=== PATIENT | male | born 1975 | race Caucasian/White ===

== ENCOUNTER 2016-08-19 22:19 | Observation (INO) | payer SELFPAY ==
[~2016-08-19] VITALS: Ht 190.5 cm; Wt 124.1 kg
[2016-08-20] VITALS (8 sets, daily range): BP systolic 109–133; BP diastolic 43–77
--- NOTE | 2016-08-20 01:13 | ED ORDER SUMMARY ---
..... Patient: MICHAEL CALIXTO OrderSheet [facility] VisitID: [id number] [address] [place] [address] 41y, M Registration Date/Time: 08/19/2016 ORDER SHEET Weight: 113.3 kg (stated) Allergies: No Known Drug Allergy GENERAL ORDERS: CBC w Diff Urgent (23:35 08/19/2016 Tyrone Jennings) (Ack 23:35 LMuller) (23:38 RKaruga) (23:39 LMuller) CMP Urgent (23:35 08/19/2016 Tyrone Jennings) (Ack 23:35 LMuller) (23:38 RKaruga) (23:39 LMuller) Lipase Urgent (23:35 08/19/2016 Tyrone Jennings) (Ack 23:35 LMuller) (23:38 RKaruga) (23:39 LMuller) UA-Culture if indicated Urgent (23:35 08/19/2016 Tyrone Jennings) (Ack 23:35 LMuller) (1:46 RCollier R.N.) CT Abd/Pel w Cont (No) (N/A) Urgent (00:06 08/20/2016 Tyrone Jennings) (0:17 CBradburn R.N.) NPO (01:33 08/20/2016 Tyrone Jennings) (1:46 RCollier R.N.) MEDICATION ORDERS: IV FLUIDS: IV NS : initial bolus 1000 mL (1000 mL/hr), then none - for X1 (NOW) (23:34 08/19/2016 Tyrone Jennings) (Ack 23:35 RCollier R.N.) (23:41 RCollier R.N.) Zofran IV 4 mg (NOW) (23:35 08/19/2016 Tyrone Jennings) (Ack 23:35 CLIFTONollier R.N.) (23:42 RCollier R.N.) Morphine IV 4 mg (HIGH ALERT MEDICATION, NOW) (00:05 08/20/2016 Tyrone Jennings) (Ack 0:06 CLIFTONollier R.N.) (Cancelled: Patient Refusal0:12 Tyrone Jennings) Toradol IV 30 mg (NOW) (00:12 08/20/2016 Tyrone Jennings) (Ack 0:29 RCollier R.N.) (0:32 RCollier R.N.) Cefotetan IV 2 gm (NOW) (01:14 08/20/2016 Tyrone Jennings) (Ack 1:14 RCollier R.N.) (1:23 RCollier R.N.) ORDER SHEET NOTES: [Electronically signed by Libby Moctezuma R.N. (02:17 08/20/2016)] [Electronically signed by Fahad Huber Dr. (02:37 08/20/2016)] [Electronically locked/signed by Libby Moctezuma R.N. (02:08/20/2016)]
--- NOTE | 2016-08-20 01:13 | ED CLINICAL REPORT ---
Clinical Report - Physicians/Mid Levels [facility] [address] [place] [address] 08/19/2016 22:21 Patient: MICHAEL CALIXTO Time Seen: 0000. Arrived- By private vehicle. Historian- patient. HISTORY OF PRESENT ILLNESS Chief Complaint: ABDOMINAL PAIN. It is described as sharp and it is described as located in the periumbilical area and in the lower abdomen. At its maximum, severity described as moderate. When seen in the E.D., severity described as moderate. This started today just after lunch and is still present. It was abrupt in onset and has been constant but is not gone now. The patient has had nausea, vomiting and diarrhea. Similar symptoms previously: None. REVIEW OF SYSTEMS No constipation, black stools, bloody stools, chest pain or difficulty breathing. All systems otherwise negative, except as recorded above. PAST HISTORY See nurses notes. Additional Surgeries: no known surgeries. Medications: None. Allergies: No Known Drug Allergy. SOCIAL HISTORY Never smoker. No alcohol use or drug use. No recent travel. Is a local resident. FAMILY HISTORY No family history of gall bladder problems. ADDITIONAL NOTES The nursing notes have been reviewed. PHYSICAL EXAM Vital Signs: 08/19/2016 23:17 BP: 137/87. HR: 63. RR: 17. O2 saturation: 100%. Temp: 98.4 F. Rowell-Yoo pain scale: 4/10. Oxygen saturation normal. Appearance: Alert. Oriented X3. Patient in mild distress. (nontoxic appearance. Polite. Cooperative.). Eyes: Pupils equal, round and reactive to light. Eyes normal inspection. No scleral icterus. Neck: Normal inspection. Neck supple. CVS: Normal heart rate and rhythm. Heart sounds normal. Pulses normal. Respiratory: No respiratory distress. Breath sounds normal. Chest nontender. No rales, rhonchi or wheezes. Abdomen: Soft. Moderate tenderness in the periumbilical area and right lower quadrant. No organomegaly. No mass. Skin: Skin warm and dry. Normal skin color. No rash. Normal skin turgor. Extremities: Extremities exhibit normal ROM. No lower extremity edema. Neuro: No motor deficit. No sensory deficit. LABS, X-RAYS, AND EKG Abdominal CT: acute appendicitis. The study was independently viewed by me and interpreted by the radiologist. The study was discussed with the radiologist (via fax and phone). Laboratory Tests: CBC w Diff: (CRISTINA: 08/19/2016 23:30) ( MsgRcvd 08/19/2016 23:50) Final results Test Result Flag Units (Reference) WHITE BLOOD COUNT 13.7 H K/uL (4.5-11.5) RED BLOOD COUNT 5.61 M/uL (4.50-5.90) HEMOGLOBIN 16.0 gm/dL (13.5-17.5) HEMATOCRIT 48.2 % (41.0-53.0) MEAN CELL VOLUME 86 fL (80-100) MEAN CORPUSCULAR HGB 29 pg (26-34) MEAN CORPUSCULAR HGB CONC 33 g/dL (31-37) RED CELL DISTRIBUTION WIDTH 12.2 % (11.6-14.8) PLATELET COUNT 241 K/uL (150-400) LYMPH % 7.4 L % (25-40) MONO % 2.0 L % (3-14) GRANULOCYTE % 90.6 H % (53-90) CMP: (CRISTINA: 08/19/2016 23:30) ( MsgRcvd 08/20/2016 00:00) Final results Test Result Flag Units (Reference) GLUCOSE 132 H mg/dL (70-110) BUN 18 mg/dL (7-18) CREATININE 1.2 mg/dL (0.6-1.3) Estimated GFR >60 mL/min Estimated GFR- >60 mL/min Note: Persistent reduction over 3 months in eGFR<60 mL/min/1.73 m2 defines CKD. Patients with eGFR values>=60 mL/min/1.73 m2 may also have CKD if evidence ofpersistent proteinuria. Additional information may be foundat www.kidney.org. SODIUM 141 mmol/L (136-145) POTASSIUM 4.0 mmol/L (3.5-5.1) CHLORIDE 106 mmol/L (98-107) CARBON DIOXIDE 25 mmol/L (21-32) CALCIUM 8.9 mg/dL (8.5-10.1) TOTAL PROTEIN 7.5 g/dL (6.4-8.2) ALBUMIN 4.1 g/dL (3.3-5.0) BILIRUBIN, TOTAL 0.8 mg/dL (0.0-1.0) ALKALINE PHOSPHATASE 62 U/L (46-116) AST (SGOT) 19 U/L (15-37) ALT (SGPT) 38 U/L (12-78) LIPASE 93 U/L (73-393) . PROGRESS AND PROCEDURES Course of Care: the patient is a 41-year-old male with no pertinent past medical history presenting for evaluation of abdominal pain. Patient with atypical symptoms of acute appendicitis however patient with tenderness to the periumbilical region as well as right lower quadrant. Patient does appear to be uncomfortable. Concern for hisacute appendicitis significant enough to warrant CT scan of the abdomen and pelvis with contrast. Pain medication has been offered. Patient had declined offers of morphine. Patient requesting nonnarcotic tip of medication. Toradol has been ordered. The patient's workup was remarkable for the findings above. Patient with with blood cell count at 13.7. Patient with CT scan evidence of acute appendicitis. No signs of perforation or abscess formation. Consult to general surgery as been placed. Antibiotics have been ordered. General surgery recommended patient be admitted to the hospital. planned for surgery at 645 this morning. Was able to talk to the soda dry house operator as well and informed them of the time of surgery. discussed with the patient his workup here in the emergency department including diagnosis and plan of care. All questions have been answered. The patient was agreeable to the treatment and plan. Prior to patient's departure from the emergency department is noted to be resting in bed and in no acute distress. Pain had improved slightly. Patient continues to be nontoxic. Patient does not appear septic at this time. Do not feel patient needs to be admitted to the ICU. Critical care performed (35 minutes). Time is exclusive of separately billable procedures. Time includes: direct patient care, patient reassessment, coordination of patient care, review of patient's medical records, medical consultation, family consultation regarding treatment decisions and documentation of patient care. Consult obtained from surgery. Disposition: Observation in Acute Care. CLINICAL IMPRESSION acute appendicitis nausea vomiting, acute acute diarrhea. (Electronically signed by Fahad Huber Dr. 08/20/2016 2:37)
--- NOTE | 2016-08-20 01:13 | ED ORDER SUMMARY ---
..... Patient: MICHAEL CALIXTO OrderSheet [facility] VisitID: [id number] [address] [place] [address] 41y, M Registration Date/Time: 08/19/2016 ORDER SHEET Weight: 113.3 kg (stated) Allergies: No Known Drug Allergy GENERAL ORDERS: CBC w Diff Urgent (23:35 08/19/2016 Tyrone Jennings) (Ack 23:35 LMuller) (23:38 RKaruga) (23:39 LMuller) CMP Urgent (23:35 08/19/2016 Tyrone Jennings) (Ack 23:35 LMuller) (23:38 RKaruga) (23:39 LMuller) Lipase Urgent (23:35 08/19/2016 Tyrone Jennings) (Ack 23:35 LMuller) (23:38 RKaruga) (23:39 LMuller) UA-Culture if indicated Urgent (23:35 08/19/2016 Tyrone Jennings) (Ack 23:35 LMuller) (1:46 RCollier R.N.) CT Abd/Pel w Cont (No) (N/A) Urgent (00:06 08/20/2016 Tyrone Jennings) (0:17 CBradburn R.N.) NPO (01:33 08/20/2016 Tyrone Jennings) (1:46 RCollier R.N.) MEDICATION ORDERS: IV FLUIDS: IV NS : initial bolus 1000 mL (1000 mL/hr), then none - for X1 (NOW) (23:34 08/19/2016 Tyrone Jennings) (Ack 23:35 RCollier R.N.) (23:41 RCollier R.N.) Zofran IV 4 mg (NOW) (23:35 08/19/2016 Tyrone Jennings) (Ack 23:35 CLIFTONollier R.N.) (23:42 RCollier R.N.) Morphine IV 4 mg (HIGH ALERT MEDICATION, NOW) (00:05 08/20/2016 Tyrone Jennings) (Ack 0:06 CLIFTONollier R.N.) (Cancelled: Patient Refusal0:12 Tyrone Jennings) Toradol IV 30 mg (NOW) (00:12 08/20/2016 Tyrone Jennings) (Ack 0:29 RCollier R.N.) (0:32 RCollier R.N.) Cefotetan IV 2 gm (NOW) (01:14 08/20/2016 Tyrone Jennings) (Ack 1:14 RCollier R.N.) (1:23 RCollier R.N.) ORDER SHEET NOTES: [Electronically signed by Libby Moctezuma R.N. (02:17 08/20/2016)] [Electronically signed by Fahad Huber Dr. (02:37 08/20/2016)] [Electronically locked/signed by Libby Moctezuma R.N. (02:08/20/2016)]
--- NOTE | 2016-08-20 01:13 | ED NURSING NOTES ---
Clinical Report - Nurses [facility] [place] [place] [address] 08/19/2016 22:21 Patient: MICHAEL CALIXTO TRIAGE Triage time 23:17. Acuity: LEVEL 3. Chief Complaint: ABDOMINAL PAIN, NAUSEA, VOMITING and DIARRHEA. --23:20 Libby Moctezuma R.N. 23:17 08/19/16. BP: 137/87. HR: 63. RR: 17 (regular). O2 saturation: 100% on room air. Temp: 98.4 F (oral). Rowell-Yoo pain scale: 4/10. --23:20 Libby Moctezuma R.N. Weight: 113.3 kg stated. Height/Length: 75 inches Per Patient. BMI: 31.2. --23:19 Libby Moctezuma R.N. Medications None. --23:20 Libby Moctezuma R.N. Allergies No Known Drug Allergy. --23:20 Libby Moctezuma R.N. History Arrived by private vehicle. Historian: patient. Accompanied by family. Primary physician (None). ( pt reports eating a ham sandwich, chips and about 2 hours after he ate he began feeling sick.). This started today. Onset. (at about 1600). PAST MEDICAL HX: Immunizations: up-to-date. SOCIAL HX: Never smoker. No alcohol use or drug use. --23:20 Libby Moctezuma R.N. PROBLEMS: Gastritis. Vomiting. --23:20 Libby Moctezuma R.N. ADDITIONAL SURGERIES: no known surgeries. Interventions ID band on patient. To treatment room. --23:20 Libby Moctezuma R.N. PHYSICAL ASSESSMENT To room via wheelchair. Patient gowned. GENERAL / NEURO / PSYCH: Alert. Oriented X 4. Appears in pain. HEENT: Mucous membranes are pink. RESPIRATORY: Respirations not labored. CVS: Capillary refill less than 2 seconds. SKIN: Skin is warm and dry. --23:21 Libby Moctezuma R.N. NURSING PROGRESS NOTES Head of bed elevated. Two patient identifiers checked. Call light placed in reach. Side rails up x 1. Bed placed in lowest position. Brakes of bed on. --23:21 Libby Moctezuma R.N. Patient ready for evaluation- chart flagged. --23:21 Libby Moctezuma R.N. 23:25 08/19/2016 Site #1 started via IV in the right antecubital space with an 20g angiocath, with aseptic technique and good blood return; one attempt. Blood drawn: rainbow set. Labeled in the presence of the patient and sent to the lab. Saline lock flushed with 10 mL saline. --23:29 Libby Moctezuma R.N. 23:37 08/19/2016 Started bag #1 1000 mL IV Fluids IV NS (Saline); at 1000 mL/hr via site #1 via IV pump. Allergies verified and confirmed 5 rights. IV patency established. IV site checked: no pain, redness, or swelling. IV flushed thoroughly pre- and post-medication administration. --23:41 Libby Moctezuma R.N. 23:39 08/19/2016 Zofran (Ondansetron HCl) IVP 4 mg given over 30 second(s) via site #1. Allergies verified and confirmed 5 rights. IV patency established. IV site checked: no pain, redness, or swelling. IV flushed thoroughly pre- and post-medication administration. IVP given by RN. --23:42 Libby Moctezuma R.N. ( pt given urinal and sample requested.). --23:42 Libby Moctezuma R.N. Patient transported to [place] by stretcher with tech. (00:17). --00:17 Lucía Cain R.N. 00:32 08/20/2016 Toradol IVP 30 mg given over 1 minute(s) via site #1. Allergies verified and confirmed 5 rights. IV patency established. IV site checked: no pain, redness, or swelling. IV flushed thoroughly pre- and post-medication administration. IVP given by RN. --00:32 Libby Moctezuma R.N. 01:32 08/20/2016 CEFOTETAN IVPB Discontinued: bag #1 infused. Total amount infused: 50 mL. IV patency established. IV site checked: no pain, redness, or swelling. IV flushed thoroughly. --01:32 Mikie Anton R.N. DISPOSITION / DISCHARGE 00:40 08/20/2016 IV Fluids IV NS Discontinued: bag #1 completed. Total amount infused: 1000 mL. IV patency established. IV site checked: no pain, redness, or swelling. IV flushed thoroughly. --01:23 Libby Moctezuma R.N. 01:20 08/20/2016 Started 2 gm of CEFOTETAN IVPB in bag #1 100 mL; at 150 mL/hr over 20 minute(s) via site #1 via IV pump. Allergies verified and confirmed 5 rights. IV patency established. IV site checked: no pain, redness, or swelling. IV flushed thoroughly pre- and post-medication administration. --01:23 Libby Moctezuma R.N. 02:08 08/20/16. BP: 114/58. HR: 89. RR: 16. O2 saturation: 97% on room air. Temp: 99.7 F (oral). Rowell-Yoo pain scale: 6/10. --02:08 Libby Moctezuma R.N. 02:08 08/20/2016 Site #[address] upon admission; patent; flushes easily. --02:09 Libby Moctezuma R.N. Report was given to a nurse via a phone call. Report included patient's care, treatment, medications, reviewed medication reconcilliation, and condition (including any recent changes or anticipated changes). Report was acknowledged. (To DASH Patton). --02:09 Libby Moctezuma R.N. Departure time: 02:10. Transported via stretcher by transport team with IV. --02:17 Libby Moctezuma R.N. Locked/Released at 08/20/2016 2:17 by Libby Moctezuma R.N.
--- NOTE | 2016-08-20 02:38 | ED MAR SUMMARY ---
..... Medication Administration Record [facility] [address] [place] [address] Patient: MICHAEL CALIXTO Visit ID: [id number] 41y, M Weight: 113.3 kg Height/Length: 75 in BMI: 31.2 ALLERGIES: No Known Drug Allergy Start 23:37 08/19/2016 Libby Moctezuma RAidan, Stop 00:40 08/20/2016 Libby Moctezuma R.N. Medication Administered: IV NS (SALINE), Dose: IV Fluids, Rate: 1000 mL/hr, Dispensed: 1000 mL bag, Site: #1 right AC. Medication Ordered: IV NS : initial bolus 1000 mL (1000 mL/hr), then none - for X1 (NOW). Given 23:39 08/19/2016 Libby Moctezuma R.N. Medication Administered: ZOFRAN [IVP] (ONDANSETRON HCL), Dose: 4 mg IVP over 30 second(s), Site: #1 right AC. Medication Ordered: Zofran IV 4 mg (NOW). Given 00:32 08/20/2016 Libby Moctezuma R.N. Medication Administered: TORADOL [IVP], Dose: 30 mg IVP over 1 minute(s), Site: #1 right AC. Medication Ordered: Toradol IV 30 mg (NOW). Start 01:20 08/20/2016 Libby Moctezuma RAidan, Stop 01:32 08/20/2016 Mikie Anton RKishoreNKishore Medication Administered: CEFOTETAN [IVPB], Dose: 2 gm IVPB over 20 minute(s), Rate: 150 mL/hr, Dispensed: 100 mL bag, Site: #1 right AC. Medication Ordered: Cefotetan IV 2 gm (NOW).
--- NOTE | 2016-08-20 02:38 | ED MED RECONCILIATION SUMMARY ---
Patient: MICHAEL CALIXTO Medication Reconciliation Report [facility] VisitID: [id number] [address] [place] [address] 41y, M Registration Date/Time: 08/19/2016 Weight: 113.3 kg Height/Length: 75 in. BMI: 31.2 ALLERGIES: No Known Drug Allergy The patient's Home Medications are listed below: NONE. The source(s) of the original Home Medication information: Not obtained. The following Medications were given to the patient in the Emergency Department: IV NS IV Fluids bolus 0, then 1000 mL/hr, administered: 08/19/2016 11:37:00 PM Zofran [IVP] IVP 4 mg, administered: 08/19/2016 11:39:00 PM Toradol [IVP] IVP 30 mg, administered: 08/20/2016 12:32:00 AM CEFOTETAN [IVPB] IVPB bolus 0, then 2 gm 150 mL/hr, administered: 08/20/2016 1:20:00 AM The following Medications were prescribed to the patient: None.
--- NOTE | 2016-08-20 02:38 | ED DISCHARGE INSTRUCTIONS ---
Patient: MICHAEL CALIXTO General Instructions [facility] VisitID: [id number] [address] [place] [address] 41y, M Registration Date/Time: 08/19/2016 acute appendicitis nausea vomiting, acute acute diarrhea. (Electronically signed by Fahad Huber Dr. 08/20/2016 2:37)
--- NOTE | 2016-08-20 02:38 | ED MED RECONCILIATION SUMMARY ---
Patient: MICHAEL CALIXTO Medication Reconciliation Report [facility] VisitID: [id number] [address] [place] [address] 41y, M Registration Date/Time: 08/19/2016 Weight: 113.3 kg Height/Length: 75 in. BMI: 31.2 ALLERGIES: No Known Drug Allergy The patient's Home Medications are listed below: NONE. The source(s) of the original Home Medication information: Not obtained. The following Medications were given to the patient in the Emergency Department: IV NS IV Fluids bolus 0, then 1000 mL/hr, administered: 08/19/2016 11:37:00 PM Zofran [IVP] IVP 4 mg, administered: 08/19/2016 11:39:00 PM Toradol [IVP] IVP 30 mg, administered: 08/20/2016 12:32:00 AM CEFOTETAN [IVPB] IVPB bolus 0, then 2 gm 150 mL/hr, administered: 08/20/2016 1:20:00 AM The following Medications were prescribed to the patient: None.
--- NOTE | 2016-08-20 02:38 | ED DISCHARGE INSTRUCTIONS ---
Patient: MICHAEL CALIXTO General Instructions [facility] VisitID: [id number] [address] [place] [address] 41y, M Registration Date/Time: 08/19/2016 acute appendicitis nausea vomiting, acute acute diarrhea. (Electronically signed by Fahad Huber Dr. 08/20/2016 2:37)
--- NOTE | 2016-08-20 02:38 | ED MAR SUMMARY ---
..... Medication Administration Record [facility] [address] [place] [address] Patient: MICHAEL CALIXTO Visit ID: [id number] 41y, M Weight: 113.3 kg Height/Length: 75 in BMI: 31.2 ALLERGIES: No Known Drug Allergy Start 23:37 08/19/2016 Libby Moctezuma RAidan, Stop 00:40 08/20/2016 Libby Moctezuma R.N. Medication Administered: IV NS (SALINE), Dose: IV Fluids, Rate: 1000 mL/hr, Dispensed: 1000 mL bag, Site: #1 right AC. Medication Ordered: IV NS : initial bolus 1000 mL (1000 mL/hr), then none - for X1 (NOW). Given 23:39 08/19/2016 Libby Moctezuma R.N. Medication Administered: ZOFRAN [IVP] (ONDANSETRON HCL), Dose: 4 mg IVP over 30 second(s), Site: #1 right AC. Medication Ordered: Zofran IV 4 mg (NOW). Given 00:32 08/20/2016 Libby Moctezuma R.N. Medication Administered: TORADOL [IVP], Dose: 30 mg IVP over 1 minute(s), Site: #1 right AC. Medication Ordered: Toradol IV 30 mg (NOW). Start 01:20 08/20/2016 Libby Moctezuma RAidan, Stop 01:32 08/20/2016 Mikie Anton RKishoreNKishore Medication Administered: CEFOTETAN [IVPB], Dose: 2 gm IVPB over 20 minute(s), Rate: 150 mL/hr, Dispensed: 100 mL bag, Site: #1 right AC. Medication Ordered: Cefotetan IV 2 gm (NOW).
--- NOTE | 2016-08-20 06:15 | DIAGNOSTIC IMAGING REPORT ---
PROCEDURE: CT ABD/PELVIS WITH CONTRAST CLINICAL INDICATION: Right lower quadrant pain. TECHNIQUE: 135 ml of Isovue 300 were injected intravenously and axial images were obtained of the entire abdomen and pelvis with sagittal and coronal reformations. COMPARISON: None. FINDINGS: ABDOMEN: Lung bases are clear. Normal heart size. Liver, gallbladder, pancreas, spleen, adrenal glands, kidneys and abdominal aorta are normal. PELVIS: There are two small appendicoliths with mild ligament of the appendix (8 mm), hyperemia and mild adjacent inflammatory changes consistent with acute appendicitis. Prostate and bladder are normal. Small fat filled left inguinal hernia. Bones are unremarkable. IMPRESSION: 1. Acute appendicitis 2. Preliminary results submitted by Dr. Jewell, [facility] radiology All CT scans at this facility use dose modulation, iterative reconstruction, and/or weight-based dosing when appropriate to reduce radiation dose to as low as reasonably achievable.
--- NOTE | 2016-08-20 06:15 | DIAGNOSTIC IMAGING REPORT ---
PROCEDURE: CT ABD/PELVIS WITH CONTRAST CLINICAL INDICATION: Right lower quadrant pain. TECHNIQUE: 135 ml of Isovue 300 were injected intravenously and axial images were obtained of the entire abdomen and pelvis with sagittal and coronal reformations. COMPARISON: None. FINDINGS: ABDOMEN: Lung bases are clear. Normal heart size. Liver, gallbladder, pancreas, spleen, adrenal glands, kidneys and abdominal aorta are normal. PELVIS: There are two small appendicoliths with mild ligament of the appendix (8 mm), hyperemia and mild adjacent inflammatory changes consistent with acute appendicitis. Prostate and bladder are normal. Small fat filled left inguinal hernia. Bones are unremarkable. IMPRESSION: 1. Acute appendicitis 2. Preliminary results submitted by Dr. Jewell, [facility] radiology All CT scans at this facility use dose modulation, iterative reconstruction, and/or weight-based dosing when appropriate to reduce radiation dose to as low as reasonably achievable.
--- NOTE | 2016-08-20 06:25 | Consultation Report ---
History Chief Complaint Abdominal pain History of Present Illness 41-year-old male who developed acute onset of abdominal pain 24-hour previously. Initially he thought he had eaten something and made him sick. He initially developed nausea, vomiting, and diarrhea. Denies any fever or chills. Pain initially located in the periumbilical region, now localizing more to the right lower quadrant. Nonradiating. He described it as sharp and constant. Patient states he hurts whenever he walks or moves around. No prior history of abdominal pain. No one else in the family sick. Patient was evaluated in the emergency room and noted to have a white count of 13.7. CT of his abdomen interpreted by radiology as acute appendicitis. PAST MEDICAL/SURGICAL HISTORY: [place] tooth extraction. Patient has no family physician. FAMILY HISTORY: Mother is age 69. Good health. Father age 56 lung cancer. 1 sister drowning accident. No family history of depression or suicidal. Patient History 1. Acute appendicitis Social History . One son alive and well. Patient does not smoke. Patient does not drink alcohol. Patient does not use recreational drugs. Occupation mobile heavy equipment mechanic. service Medications and Allergies Medications No home medications. Current Medications Sig/Ender Start time Last Medication Dose Route Stop Time Status Admin Famotidine/Sodium 50 ML Q12HR 08/20 0900 AC Chloride IV Metoclopramide HCl 10 MG Q6HR 08/20 0600 AC 08/20 IV 0553 Lactated Ringer's 1,000 ML ASDIRECTED 08/20 0400 AC 08/20 IV 0430 Meperidine HCl 12.5 MG Q30MIN PRN 08/20 0400 AC IV Ondansetron HCl 4 MG Q6H PRN 08/20 0400 AC IV Allergies Coded Allergies: NKA (08/20/16) Review of Systems Other No history of hepatitis, jaundice, many fever, heart murmurs, requiring antibiotics, bleeding tendencies, blood transfusions, depression, or suicide attempt/ideation. Remaining 12 point review of systems negative Physical Exam Vital Signs / I&Os Vital Signs Date Time Temp Pulse Resp B/P Pulse O2 O2 Flow FiO2 Ox Delivery Rate 08/20 0228 99.1 89 16 133/77 98 Room Air General Appearance Alert, Oriented X3, Cooperative, Mild distress HEENT Atraumatic, PERRLA, EOMI, Moist mucous membranes Lungs Clear to auscultation Neck Supple, No JVD, No masses, No thyromegaly, No lymphadenopathy, 2+ carotid pulse wo bruit Cardiovascular Regular rate and rhythm Abdomen hypoactive bowel sounds. Positive Rovsing sign. Extremities No cyanosis, No clubbing, No edema, Normal pulses Skin warm and dry Neurological No lateralizing signs Psych/Mental Status Mental status normal LAB Results Laboratory Tests 08/19 2330 Chemistry Plasma Sodium (136 - 145 mmol/L) 141 Plasma Potassium (3.5 - 5.1 mmol/L) 4.0 Plasma Chloride (98 - 107 mmol/L) 106 CO2 (Enzymatic) (21 - 32 mmol/L) 25 BUN (7 - 18 mg/dL) 18 Creatinine (0.6 - 1.3 mg/dL) 1.2 Est GFR ( Amer) (mL/min) >60 Est GFR (Non-Af Amer) (mL/min) >60 Glucose (70 - 110 mg/dL) 132 Plasma Calcium (8.5 - 10.1 mg/dL) 8.9 Total Bilirubin (0.0 - 1.0 mg/dL) 0.8 AST (15 - 37 U/L) 19 ALT (12 - 78 U/L) 38 Alkaline Phosphatase (46 - 116 U/L) 62 Total Protein (6.4 - 8.2 g/dL) 7.5 Albumin (3.3 - 5.0 g/dL) 4.1 Lipase (73 - 393 U/L) 93 Hematology WBC (4.5 - 11.5 K/uL) 13.7 RBC (4.50 - 5.90 M/uL) 5.61 Hgb (13.5 - 17.5 gm/dL) 16.0 Hct (41.0 - 53.0 %) 48.2 MCV (80 - 100 fL) 86 MCH (26 - 34 pg) 29 RDW (11.6 - 14.8 %) 12.2 Gran % (53 - 90 %) 90.6 Lymph % (Auto) (25 - 40 %) 7.4 [place] % (Auto) (3 - 14 %) 2.0 Plt Count, EDTA (150 - 400 K/uL) 241 PUBS MCHC (31 - 37 g/dL) 33 Assessment and Plan Problem List 1. Acute appendicitis Plan Acute appendicitis. Plan laparoscopic appendectomy. The procedure has been explained to the patient including the potential risk of trocar site infection/ hernia, damage to intra-abdominal local structures, postoperative intra- abdominal abscess name a few but not exclusive of. All questions answered to the patient's satisfaction. We will schedule for emergent laparoscopic appendectomy
--- NOTE | 2016-08-20 07:35 | Operative Report ---
Operative Report Date of Surgery: 08/20/16 Preoperate Diagnosis: appendicitis Postoperative Diagnosis: early gangrene of the appendix Surgeon: Jose Asher MD Logistics Planning Engineer Surgeon: none Procedure Performed: Laparoscopic appendectomy Anesthesia: Gen. endotracheal Indications: A 41-year-old male with a less than 24-hour history of progressive abdominal pain. White count 13,000. CT consistent with early appendicitis. FINDINGS: Early gangrene of the appendix/appendicitis. Pericecal appendix Surgical Technique: Patient brought to the operating room. Placed in the dorsal supine position. Patient underwent general endotracheal anesthesia by the anesthesiology department. After proper anesthesia had taken effect patient's abdomen was prepped using Betadine and draped in a sterile fashion. An infraumbilical incision made clear down to skin and subcutaneous tissue and varies needle was inserted through this site into the abdominal cavity. After ascertaining its appropriate position with suction irrigation and pneumoperitoneum obtained using CO2 insufflation trocar suture 14 15 mmHg pressure. Once this pressure was reached varies needle was removed and replaced the 10 mm trocar. The trocar removed after which which a laparoscopic video camera was introduced into the abdominal cavity. Under direct visualization a 5 mm trocar was placed in the suprapubic region. A separate 5 mm trocar was placed in the left lower quadrant. Each entered the abdominal cavity under direct visualization. The trochars removed , leaving the sleeves behind. Instrumentation was introduced into the abdominal cavity. The aforementioned findings noted, the appendix was identified and the meso- appendix was taken down using the ThunderBeat. The base of the appendix was clipped using the hemo-lock. The appendix was then transected between the hemo-lock using the Endo [place]. The appendix was placed in a sterile specimen container bag and retrieved from the abdominal cavity and sent to pathology. The appendiceal stump was cauterized using the ThunderBeat. The abdominal cavity right lower quadrant and pelvis was irrigated with warm normal saline antibiotic solution. The irrigant suctioned out. Hemostasis achieved. The pneumoperitoneum released. All trochars removed from the abdominal cavity. All trochar sites were approximated using 4-0 subdermal Polysorb suture. Steri-Strips were placed over the wound. Sterile occlusive dressings were placed over each surgical site. Patient was extubated and transferred to recovery room in stable condition. There were no intraoperative complications. CONDITION: Stable to postoperative anesthesia recovery room COMPLICATIONS: None ESTIMATED BLOOD LOSS: None FLUIDS: 700 cc lactated Ringer's DRAINS: None SPECIMEN: Appendix
[2016-08-20] MEDS ORDERED: HYCET1 ML PO (07:37)
--- NOTE | 2016-08-20 07:38 | Provider's Discharge Care Plan ---
Problem, Goal, Plan Problem List 1. Status post laparoscopic appendectomy Goals: Improve disease control, Therapeutic intervention Instructions: Follow up as directed, Take meds as directed
--- NOTE | 2016-08-20 07:38 | Provider's Discharge Care Plan ---
Problem, Goal, Plan Problem List 1. Status post laparoscopic appendectomy Goals: Improve disease control, Therapeutic intervention Instructions: Follow up as directed, Take meds as directed
== END 2016-08-20 13:52 | disposition home or self-care (01) ==
LOC: ED SRH 22:19 → ACUTE2 SRH 08-20 01:38 → TRANS SRH 08-20 01:38 → ACUTE2 SRH 08-20 02:42
PROVIDERS: ADMIT Specialist
PROC: 0DTJ4ZZ Resection of Appendix, Percutaneous Endoscopic Approach (ICD-10-PCS; principal; 2016-08-20 06:45)
DX: K35.80 Unspecified acute appendicitis (principal); R11.2 Nausea with vomiting, unspecified
CPT/HCPCS: 29229; 29230; 50002; 60001; 70002; 80102; 80248; 82794; 82897; 83338; 83343; 83587; 83920; 83982; 84038; 90004; 90100; 92235; 95059